=== PATIENT | male | born 1945 | race African-American/Black ===

== ENCOUNTER 2020-05-12 08:22 | Emergency (ER) | payer MEDICARE ==
[~2020-05-12] VITALS: Ht 177.8 cm; Wt 82.0 kg
[2020-05-12] MEDS ORDERED: HYDROCODONE/ACETAMINOPHEN 5/325MG TABLET PO STA (08:47)
[2020-05-12] MEDS ORDERED: ONDANSETRON HCL 4MG/2ML INJ IV STA (08:47)
[2020-05-12] MEDS ORDERED: NITROGLYCERIN OINT 1GM/INCH UDPKT TD ONE (09:00)
[2020-05-12 09:03] LABS: BASOPHILS % 0.6 % (0.0-2.0); HEMATOCRIT. 53.5 % (42.0-52.0); HEMOGLOBIN. 17.7 g/dL (14.0-18.0); MEAN CORPUSCULAR HEMOGLOBIN 29.7 pg (28.0-32.0); MEAN CORPUSCULAR VOLUME 89.6 fL (80.0-94.0); MEAN PLATELET VOLUME 8.5 fl (7.4-10.4); MONOCYTES % 9.2 % (2.0-8.0); NEUTROPHILS % 78.2 % (40.0-76.0); PLATELET 134 x1000/uL (130-400); RED BLOOD CELL COUNT 5.97 mill/uL (4.7-6.1); RED CELL DISTRIBUTION WIDTH 14.9 % (11.6-14.6)
[2020-05-12 09:13] LABS: CHLORIDE 109 mEq/L (98-107)
[2020-05-12 09:17] LABS: ETHANOL BLOOD < 10 mg/dL
[2020-05-12] MEDS ORDERED: METOPROLOL TARTRATE 25MG TABLET PO SCH (10:30)
[2020-05-12] MEDS ORDERED: LIDOCAINE 5% PATCH TOP PRN (12:30)
[2020-05-12 13:00] VITALS: BP 138/82
[2020-05-12] MEDS ORDERED: ONDANSETRON HCL 4MG/2ML INJ IV PRN (18:30)
[2020-05-12] MEDS ORDERED: MAGNESIUM/ALUMINUM HYDROXIDE/SIMETHICONE 30ML UDC PO PRN (18:30)
[2020-05-12] MEDS ORDERED: ACETAMINOPHEN 650MG SUPP PR PRN ×2 (18:30)
[2020-05-12] MEDS ORDERED: HYDROCODONE/APAP 7.5/325MG 1 TAB TABLET PO PRN (18:30)
[2020-05-12] MEDS ORDERED: DIPHENHYDRAMINE 50MG/ML VIAL IV PRN (18:30)
[2020-05-12] MEDS ORDERED: CLONIDINE 0.1MG TABLET PO PRN (18:30)
[2020-05-12] MEDS ORDERED: DEXTROSE 50% WATER 50ML SYRINGE IV PRN (18:30)
[2020-05-12] MEDS ORDERED: ACETAMINOPHEN 650MG/20.3ML UDC GT PRN (18:30)
[2020-05-12] MEDS ORDERED: NA PHOS,M-B/NA PHOS,DI-BA ENEMA 118ML PR PRN (18:30)
[2020-05-12] MEDS ORDERED: GUAIFENESIN 200MG/10ML SUGAR FREE UDC PO PRN (18:30)
[2020-05-12] MEDS ORDERED: DOCUSATE SODIUM 100MG CAPSULE PO PRN (18:30)
[2020-05-12] MEDS ORDERED: ENOXAPARIN 40MG/0.4ML SYR SUBCUT SCH (19:00)
[2020-05-12] MEDS ORDERED: INSULIN LISPRO 100 UNITS/ML SUBCUT SCH (21:00)
[2020-05-12] MEDS ORDERED: BLOOD SUGAR DIAGNOSTIC STRIP TEST SCH (21:00)
[2020-05-12] MEDS ORDERED: ATORVASTATIN CALCIUM 40MG TABLET PO SCH (21:00)
[2020-05-13] MEDS ORDERED: ASPIRIN 81MG TABLET PO SCH (09:00)
== END 2020-05-12 14:35 | disposition left against medical advice (07) ==
LOC: ER 08:22 → EDBEDREQ 09:48 → ER 14:35 → CANBEDREQ 18:32
DX: R07.89 Other chest pain (principal); I25.10 Atherosclerotic heart disease of native coronary artery without angina pectoris; I10 Essential (primary) hypertension; E11.9 Type 2 diabetes mellitus without complications; R42 Dizziness and giddiness
CPT/HCPCS: 36415; 71045; 80053; 80320; 83036; 83690; 83880; 84484; 85025; 93005; 96374; 99285; J2405; G0480